=== PATIENT | male | born 1990 | race African-American/Black ===

== ENCOUNTER 2022-02-13 05:24 | Emergency (ER) | payer SELFPAY ==
[~2022-02-13] VITALS: Ht 182.9 cm; Wt 105.0 kg
[2022-02-13] MEDS ORDERED: MIDAZOLAM HCL 2 MG/2 ML VIAL IM ONE (08:30)
[2022-02-13 10:40] VITALS: BP 115/75
== END 2022-02-13 10:42 | disposition home or self-care (01) ==
LOC: ER 05:24
DX: F15.129 Other stimulant abuse with intoxication, unspecified (principal); R44.0 Auditory hallucinations; F91.8 Other conduct disorders
CPT/HCPCS: 96372; 99283; J2250